=== PATIENT | male | born 1960 | race Two or more races ===

== ENCOUNTER → 2016-07-17 | Outpatient (CLI) | payer OTHER ==
[2016-07-17 09:38] LABS: BASO % 0.5 % (0.0-1.0); EOS # 0.1 K/mm3 (0.0-0.50); EOS % 2.1 % (0.0-3.0); LARGE UNSTAINED CELL # 0.2 K/mm3 (0.0-0.4); LARGE UNSTAINED CELL % 2.8 % (0.0-4.0); LYMPH # 1.9 K/mm3 (1.5-4.5); LYMPH % 32.4 % (24.0-44.0); MEAN CORPUSCULAR HEMOGLOBIN 30.4 pg (27.0-33.0); MEAN CORPUSCULAR HGB CONC 33.6 g/dl (32.0-36.5); MEAN CORPUSCULAR VOLUME 90.6 fl (80.0-96.0); MONO # 0.3 K/mm3 (0.0-0.8); NEUTROPHILS # 3.1 K/mm3 (1.8-7.7); NEUTROPHILS % 57.1 % (36.0-66.0); PLATELET COUNT, AUTOMATED 210 k/mm3 (150-450); RED CELL DISTRIBUTION WIDTH 12.9 % (11.5-14.5); WHITE BLOOD COUNT 5.5 K/mm3 (4.0-10.0)
[2016-07-17 09:55] LABS: ALBUMIN 3.6 GM/DL (3.2-5.2); ALBUMIN/GLOBULIN RATIO 1.09 (1.00-1.93); ALKALINE PHOSPHATASE 67 U/L (45-117); ALT/SGPT 22 U/L (12-78); ANION GAP 6 MEQ/L (8-16); AST/SGOT 14 U/L (15-37); BILIRUBIN,TOTAL 0.4 MG/DL (0.2-1.0); BLOOD UREA NITROGEN 12 MG/DL (7-18); CALCIUM LEVEL 8.5 MG/DL (8.5-10.1); CARBON DIOXIDE LEVEL 29 MEQ/L (21-32); CHLORIDE LEVEL 105 MEQ/L (98-107); CHOLESTEROL LEVEL 195 MG/DL (<200); CREATININE FOR GFR 0.87 MG/DL (0.70-1.30); GLOMERULAR FILTRATION RATE > 60.0 (>56); GLUCOSE, FASTING 99 MG/DL (70-105); POTASSIUM SERUM 4.3 MEQ/L (3.5-5.1); SODIUM LEVEL 140 MEQ/L (136-145); TOTAL PROTEIN 6.9 GM/DL (6.4-8.2); TRIGLYCERIDES LEVEL 118 MG/DL (<150)
== END ==
LOC: M LAB 08:11
PROVIDERS: ATTEND Nurse Practitioner Family
DX: Z00.00 Encounter for general adult medical examination without abnormal findings (principal); I15.9 Secondary hypertension, unspecified; Z13.220 Encounter for screening for lipoid disorders; Z12.5 Encounter for screening for malignant neoplasm of prostate; E55.9 Vitamin D deficiency, unspecified

== ENCOUNTER → 2016-08-15 | Outpatient (CLI) | payer OTHER | LOC: M SMT 14:05 | PROVIDERS: ATTEND Urology | DX: R97.20 Elevated prostate specific antigen [PSA] (principal); Z85.49 Personal history of malignant neoplasm of other male genital organs ==

== ENCOUNTER 2016-09-04 11:56 | Emergency (ER) | payer OTHER ==
[~2016-09-04] VITALS: Ht 177.8 cm; Wt 81.6 kg
[2016-09-04] MEDS ORDERED: VITA50003 PO (12:13)
[2016-09-04] MEDS ORDERED: ATOR40TA (12:13)
[2016-09-04] MEDS ORDERED: guaiFENesin SYRUP 200 MG/10 ML UDC PO ONE (13:15)
--- NOTE | 2016-09-04 13:42 | REP ---
Clinical: Chest and left shoulder pain . Comparison: 03/24/2014 . Technique: PA and lateral. Findings: The mediastinum and cardiac silhouette are normal. The lung yusuf are clear and without acute consolidation, effusion, or pneumothorax. The skeletal structures are intact and normal. Impression: 1. No acute cardiopulmonary process. Signed by Catracho Faust MD 09/04/2016 01:33 P
--- NOTE | 2016-09-04 13:43 | REP ---
Clinical: Left shoulder pain with suggestions for adhesive capsulitis. Technique: Internal rotation, external rotation, and Y view left shoulder. Findings: No acute fracture or dislocation. The acromioclavicular and glenohumeral joints are intact. No periarticular calcifications or degenerative changes are appreciated. Sub acromial space is normal. Surrounding soft tissues are unremarkable. Impression: Normal left shoulder radiographs. Signed by Catracho Faust MD 09/04/2016 01:34 P
[2016-09-04 14:25] VITALS: BP 152/94
[2016-09-04] MEDS ORDERED: TESS100C PO (14:30)
--- NOTE | 2016-09-04 15:04 | ECGEPIP ---
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
== END 2016-09-04 14:44 | disposition home or self-care (01) ==
LOC: M ED 12:28
DX: J06.9 Acute upper respiratory infection, unspecified (principal); S46.912A Strain of unspecified muscle, fascia and tendon at shoulder and upper arm level, left arm, initial encounter; X58.XXXA Exposure to other specified factors, initial encounter; Y92.9 Unspecified place or not applicable; Y93.9 Activity, unspecified; Y99.9 Unspecified external cause status; Z79.899 Other long term (current) drug therapy

== ENCOUNTER → 2016-09-13 | Outpatient (CLI) | payer OTHER ==
[~2016-09-13] MED LIST: ATOR40TA; TESS100C PO; VITA50003 PO
--- NOTE | 2016-09-13 17:22 | REP ---
MULTIPARAMETRIC PROSTATE MRI STUDY WITH PRE- AND [id number] IMAGING, DIFFUSION WEIGHT IMAGING: TECHNIQUE: Using a phased array surface coil, small field of view imaging was acquired using T2-weighted scans in the axial, coronal, and sagittal imaging planes. Small field of view diffusion-weighted sequences are acquired. Small field of view axial T1-weighted scans are acquired dynamically after the intravenous administration of 16 mL of ProHance. Using a large field of view, the entire pelvis to the level of the aortic bifurcation was imaged using pre-contrast axial T1 and post-contrast axial T1 fat-saturation images. HISTORY: Elevated prostate specific antigen. FINDINGS: Visualized osseous structures demonstrate no bone lesion. No pelvic or inguinal adenopathy is seen. Posterior to the right hip joint is an oval lobulated cystic structure which measures 3.2 x 6.6 x 4.0 cm. This does not appear to enhance. This is nonspecific. Seminal vesicles appear essentially unremarkable. The prostate measures 4.0 x 3.0 x 2.6 cm. Total volume is 16.7 mL. Three areas of abnormal signal intensity and contrast enhancement are identified in the prostate glands as regions of interest. First in the midline anterior stroma, extending from the base to the apex, both on the right and the left, an also involving the mid and basilar anterior transitional zone is an oval area of low signal on T2 and diffusion weighted images. There is no extracapsular extension. Enhancement characteristics are mainly type 1. The area measures 2.8 x 1.4 x 2.6 cm for a total volume of 4.1 mL. Overall level of suspicion is 3 out of 5 with clinically significant cancer equivocal. Secondly in the left posterior peripheral zone extending from the base to the apex is a somewhat geographic area of low signal on T2 and diffusion weighted imaging. There are primarily type 1 enhancement characteristics in this region. The area measures 1.7 x 0.6 x 2.3 cm for a total volume of 1.8 mL. Overall level of suspicion is 2 out of 5 with clinically significant cancer unlikely to be present. Finally in the right apical posterior peripheral zone is a somewhat geographic area of low signal on T2 and diffusion weighted imaging. Enhancement characteristics are mainly type 1. Overall level of suspicion is 2 out of 5 with clinically significant cancer unlikely to be present. IMPRESSION: Three focal abnormalities in the prostate gland are identified as regions of interest in the [employer] software for MR ultrasound fusion utilization. Signed by Khari Stokes MD 09/14/2016 07:08 P
== END ==
LOC: M RAD 13:32
PROVIDERS: ATTEND Urology
DX: R93.8 Abnormal findings on diagnostic imaging of other specified body structures (principal)

== ENCOUNTER → 2016-09-29 | Outpatient (CLI) | payer OTHER ==
[~2016-09-29] MED LIST changes: +ASPI1TAB PO; -ATOR40TA; +ATOR40TA PO; +CLOP75TA2 PO; +DRIS50002 PO; +METO12TA PO
--- NOTE | 2016-09-29 12:14 | REP ---
TRANSRECTAL PROSTATE ULTRASOUND WITH ULTRASOUND GUIDANCE FOR PROSTATE BIOPSY: Transrectal prostate ultrasound performed. The prostate measures 3.4 x 2.2 x 4.0 cm for a total volume of 15.9 mL. Transrectal prostate ultrasound guidance was provided for a prostate biopsy utilizing MR ultrasound fusion software. Signed by Khari Stokes MD 09/29/2016 05:21 P
== END ==
LOC: M SMT PRO 09:01
PROVIDERS: ATTEND Urology
DX: C61 Malignant neoplasm of prostate (principal)
CPT/HCPCS: 76872; 76942; G0416

== ENCOUNTER 2016-10-06 17:57 | Emergency (ER) | payer OTHER ==
[~2016-10-06] VITALS: Ht 177.8 cm; Wt 83.0 kg
[~2016-10-06 17:57] MED LIST changes: -ASPI1TAB PO; -ATOR40TA PO; +ATOR40TA75 PO; -CLOP75TA2 PO; -DRIS50002 PO; -METO12TA PO; +VITA1CAP40 PO; -VITA50003 PO
[2016-10-06 19:10] LABS: BASO % 0.4 % (0.0-1.0); EOS # 0.2 K/mm3 (0.0-0.50); LARGE UNSTAINED CELL # 0.1 K/mm3 (0.0-0.4); LARGE UNSTAINED CELL % 1.9 % (0.0-4.0); LYMPH # 2.7 K/mm3 (1.5-4.5); LYMPH % 36.9 % (24.0-44.0); MEAN CORPUSCULAR HEMOGLOBIN 30.8 pg (27.0-33.0); MEAN CORPUSCULAR HGB CONC 34.1 g/dl (32.0-36.5); MEAN CORPUSCULAR VOLUME 90.2 fl (80.0-96.0); MONO # 0.3 K/mm3 (0.0-0.8); NEUTROPHILS # 3.6 K/mm3 (1.8-7.7); NEUTROPHILS % 52.8 % (36.0-66.0); PLATELET COUNT, AUTOMATED 203 k/mm3 (150-450); RED CELL DISTRIBUTION WIDTH 13.2 % (11.5-14.5); WHITE BLOOD COUNT 6.9 K/mm3 (4.0-10.0)
--- NOTE | 2016-10-06 19:10 | REP ---
AP PORTABLE CHEST: 10/06/2016. Comparison: 09/04/2016, 03/24/2014, 08/08/2013 chest x-rays. Clinical history: Chest pain. Findings: Lungs are well inflated without infiltrative effusion, atelectasis or masses. No pneumothorax or pneumomediastinum. Heart is not enlarged. The aorta is normal. Airway is intact. There is no mediastinal or hilar adenopathy. Bony thorax shows no focal lesion. Impression: 1. No acute cardiopulmonary change. Signed by Bobby Diallo MD 10/06/2016 08:51 P
[2016-10-06 19:12] LABS: INR 0.99
[2016-10-06 19:27] LABS: ALBUMIN 3.9 GM/DL (3.2-5.2); ALBUMIN/GLOBULIN RATIO 1.05 (1.00-1.93); ALKALINE PHOSPHATASE 79 U/L (45-117); ALT/SGPT 27 U/L (12-78); ANION GAP 5 MEQ/L (8-16); AST/SGOT 16 U/L (15-37); BILIRUBIN,DIRECT 0.1 MG/DL (0.0-0.2); BILIRUBIN,TOTAL 0.5 MG/DL (0.2-1.0); BLOOD UREA NITROGEN 13 MG/DL (7-18); CALCIUM LEVEL 8.9 MG/DL (8.5-10.1); CARBON DIOXIDE LEVEL 28 MEQ/L (21-32); CHLORIDE LEVEL 104 MEQ/L (98-107); CREATININE FOR GFR 0.96 MG/DL (0.70-1.30); FREE T4 1.21 NG/DL (0.76-1.46); GLOMERULAR FILTRATION RATE > 60.0 (>56); GLUCOSE, FASTING 134 MG/DL (70-105); POTASSIUM SERUM 4.1 MEQ/L (3.5-5.1); SODIUM LEVEL 137 MEQ/L (136-145); TOTAL PROTEIN 7.6 GM/DL (6.4-8.2)
[2016-10-06] MEDS ORDERED: NITROGLYCERIN 2% OINT 1 GM *U/D* PKT TOP ONE (20:15)
[2016-10-06] MEDS ORDERED: MORPHINE 4 MG/ML 1ML SYRINGE IV PRN (21:45)
[2016-10-06] MEDS ORDERED: ONDANSETRON 4MG/2ML VIAL (J2405) IV ONE (21:45)
[2016-10-06] MEDS ORDERED: HEPARIN DRIP 25,000 UNITS in APPROPRIATE DILUENT 1 EA IV SCH (21:55)
[2016-10-06] MEDS ORDERED: HEPARIN SOD (PORCINE) 5000 UNITS/ML VIAL IV ONE (22:00)
[2016-10-06] MEDS ORDERED: METOPROLOL TART 25 MG TABLET PO ONE (22:00)
[2016-10-06] MEDS ORDERED: CLOPIDOGREL 300 MG TAB (PLAVIX) PO STA (22:01)
[2016-10-06] MEDS: NITROGLYCERIN 0.4 MG SUBL TABLET SL PRN ×3 (22:23→22:40)
[2016-10-06] MEDS: METOPROLOL 5 MG/5 ML VIAL IV SCH ×2 (22:24→22:35)
[2016-10-06 22:29] LABS: INR 1.03
[2016-10-06 22:40] VITALS: BP 136/92
[2016-10-06 23:26] VITALS: BP 123/84
--- NOTE | 2016-10-07 07:39 | ECGEPIP ---
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
--- NOTE | 2016-10-07 07:41 | ECGEPIP ---
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
== END 2016-10-06 23:28 | disposition short-term general hospital (02) ==
LOC: M ED 20:03
DX: I20.0 Unstable angina (principal); C61 Malignant neoplasm of prostate; E78.5 Hyperlipidemia, unspecified; Z82.49 Family history of ischemic heart disease and other diseases of the circulatory system; R94.31 Abnormal electrocardiogram [ECG] [EKG]; Z79.899 Other long term (current) drug therapy

== ENCOUNTER 2016-10-10 21:18 | Emergency (ER) | payer OTHER ==
[~2016-10-10] VITALS: Ht 177.8 cm; Wt 81.0 kg
[2016-10-10] MEDS ORDERED: ASPI1TAB PO (21:30)
[2016-10-10] MEDS ORDERED: METO1TAB87 PO (21:30)
[2016-10-10] MEDS ORDERED: CLOP75TA2 PO (21:30)
[2016-10-10 22:15] LABS: INR 1.13
[2016-10-10 22:35] VITALS: BP 128/91
[2016-10-11] MEDS ORDERED: DRIS50002 PO (11:36)
== END 2016-10-10 22:35 | disposition home or self-care (01) ==
LOC: EDBD 21:18 → M ED 21:18
DX: L76.22 Postprocedural hemorrhage of skin and subcutaneous tissue following other procedure (principal); I25.10 Atherosclerotic heart disease of native coronary artery without angina pectoris; I10 Essential (primary) hypertension; E78.5 Hyperlipidemia, unspecified; Z95.5 Presence of coronary angioplasty implant and graft; Z79.82 Long term (current) use of aspirin; Z79.899 Other long term (current) drug therapy

== ENCOUNTER 2016-10-11 08:31 | Observation (INO) | payer OTHER ==
[~2016-10-11] VITALS: Ht 177.8 cm; Wt 79.0 kg
[~2016-10-11 08:31] MED LIST changes: +ASPI1TAB PO; +CLOP75TA2 PO; +METO1TAB87 PO
[2016-10-11] MEDS ORDERED: ATORVASTATIN 20 MG TAB PO SCH ×2 (09:00→11:46)
[2016-10-11] MEDS ORDERED: PIPERACILLIN/TAZOBACTAM SOD 3.375 GM in D5W MINI-BAG PLUS 50 ML IV ONE (09:15)
--- NOTE | 2016-10-11 10:07 | REP ---
Soft-tissue ultrasound right groin: History: Question hematoma status post catheterization 2 days prior. Bleeding from incision site. Findings: There is a normal-appearing right inguinal lymph node 2.4 x 0.7 cm in diameter. Color flow and two-dimensional ultrasound demonstrate a hypoechoic area along the anterior wall of the common femoral artery on the right. This fills in with bidirectional color flow. It is 4 mm in diameter and is compatible with a small pseudoaneurysm. No significant overlying hematoma is seen. 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 No significant hematoma seen. A normal appearing right inguinal lymph node is noted. Signed by Madhav Lau MD 10/11/2016 03:22 P
[2016-10-11 10:12] LABS: INR 1.02
[2016-10-11 10:16] LABS: MEAN CORPUSCULAR HEMOGLOBIN 31.5 pg (27.0-33.0); MEAN CORPUSCULAR HGB CONC 34.7 g/dl (32.0-36.5); MEAN CORPUSCULAR VOLUME 90.7 fl (80.0-96.0); RED CELL DISTRIBUTION WIDTH 12.9 % (11.5-14.5)
[2016-10-11 10:50] LABS: ANION GAP 5 MEQ/L (8-16); BLOOD UREA NITROGEN 15 MG/DL (7-18); CARBON DIOXIDE LEVEL 28 MEQ/L (21-32); CHLORIDE LEVEL 104 MEQ/L (98-107); CREATININE FOR GFR 0.78 MG/DL (0.70-1.30); GLOMERULAR FILTRATION RATE > 60.0 (>56); GLUCOSE, FASTING 99 MG/DL (70-105); POTASSIUM SERUM 4.4 MEQ/L (3.5-5.1); SODIUM LEVEL 137 MEQ/L (136-145)
[2016-10-11] MEDS: CLOPIDOGREL 75 MG TAB PO SCH (11:08)
[2016-10-11] MEDS: ASPIRIN 81 MG ENTERIC TAB PO SCH (11:08)
[2016-10-11] MEDS: METOPROLOL TART 25 MG TABLET PO SCH ×2 (11:09→21:45)
[2016-10-11] MEDS ORDERED: DRIS50002 PO (11:36)
[2016-10-11 14:00] VITALS: BP 127/81
[2016-10-11 22:00] VITALS: BP 114/75
[2016-10-12 06:00] VITALS: BP 115/81
[2016-10-12 08:27] VITALS: BP 115/81
[2016-10-12] MEDS: METOPROLOL TART 25 MG TABLET PO SCH (08:27)
[2016-10-12] MEDS: CLOPIDOGREL 75 MG TAB PO SCH (08:27)
[2016-10-12] MEDS: ASPIRIN 81 MG ENTERIC TAB PO SCH (08:27)
[2016-10-12 10:00] VITALS: BP 117/79
--- NOTE | 2016-10-12 12:32 | IPN ---
DATE: 10/12/2016 Patient denies any complaints. No chest pain. No shortness of breath. No transient ischemic attacks (TIA)s. No amaurosis fugax. No dysarthria. No paralysis of paresis of an extremity. No nausea, vomiting, fevers or chills. Patient was ambulating last evening and this morning and has had no further bleeding from his right femoral cannulation site status post coronary artery angiography with stent placement. OBJECTIVE: Afebrile with normal vital signs, oxygen 98% on room air. Neurologic: Awake, alert, oriented times three with no focal deficits. Neck is supple with no carotid bruits auscultated. Heart: Regular rate and rhythm with no murmurs, rubs or gallops. Lungs: Clear to auscultation bilaterally with no rhonchi, wheezes or crackles. Abdomen: Soft, nontender, nondistended with no palpable pulsatile masses. Extremities: Well perfused with 2+ brachial, radial and ulnar pulses in the upper extremities. Lower extremities show 2+ femoral, popliteal, dorsalis pedis and posterior tibial pulses. The right femoral cannulation site is clean with a dressing in place with no saturation or bleeding noted on the dressing. ASSESSMENT: Patient is a 56-year-old male who underwent a cardiac angiogram with angioplasty and stent due to unstable angina with placement of three stents. The location of the stents is unknown at this time as I do not have a report of the procedure. The patient developed bleeding from his right groin postprocedure and was seen in the emergency room twice and arterial duplex of the right common femoral artery was performed showing an approximately 4 mm pseudoaneurysm. The patient was admitted to the hospital for observation and bed rest for 8 hours after which he was ambulating without difficulty. The patient will undergo an arterial duplex of his right common femoral artery this morning to see if there is any increased size of the pseudoaneurysm or whether the pseudoaneurysm has thrombosed. If there has been no worsening of the pseudoaneurysm and/or improvement, the patient will be discharged home today.
--- NOTE | 2016-10-12 23:40 | IPN ---
DATE OF EVALUATION: 10/12/2016 SUBJECTIVE: Patient has had no right inguinal bleeding since his initial evaluation in the emergency room yesterday. STUDIES: Patient underwent a right femoral arterial duplex, which showed no evidence of pseudoaneurysm. The previously interpreted ultrasound stating there was a 4 mm pseudoaneurysm was reviewed in contrast with the new study performed, and the previous study actually demonstrated what appears to be a collateral branch originating off the common femoral artery and coursing towards a lymph node with no evidence of pseudoaneurysm. The repeat scan today also confirms no pseudoaneurysm present, and no intervention is required. Patient will be discharged to home and will followup with myself on an as-needed basis. Patient will continue all medications he was on prior to admission.
--- NOTE | 2016-10-19 15:12 | REP ---
SOFT-TISSUE ULTRASOUND RIGHT GROIN WITH DOPPLER: HISTORY: Sonography from October 11, 2016 was read as showing a small right common femoral artery pseudoaneurysm. SONOGRAPHIC FINDINGS: Repeat sonography is performed. The hypoechoic area extending from the anterior wall of the common femoral artery on the right is again seen, however, on today's study this appears to be a normal branch vessel arising from the common femoral artery. A there is no evidence of pseudoaneurysm today. No to-and-fro motion is seen on color Doppler. As on yesterday's study, there is no evidence of hematoma. IMPRESSION: Repeat two-dimensional and Doppler scanning shows no evidence of pseudoaneurysm. There is a normal-appearing branch vessel arising from this segment the common femoral artery. No hematoma seen. Signed by Mahdav Lau MD 10/12/2016 03:31 P
== END 2016-10-12 14:15 | disposition home or self-care (01) ==
LOC: M ED 08:31 → M ED INP 10:16 → M MS5PR 13:31
PROVIDERS: ADMIT Surgery Vascular Surgery; ATTEND Surgery Vascular Surgery
DX: I72.4 Aneurysm of artery of lower extremity (principal); I10 Essential (primary) hypertension; I25.10 Atherosclerotic heart disease of native coronary artery without angina pectoris; Z98.61 Coronary angioplasty status; Z85.46 Personal history of malignant neoplasm of prostate; Z79.02 Long term (current) use of antithrombotics/antiplatelets

== ENCOUNTER → 2016-10-19 | Outpatient (REF) | payer OTHER ==
[~2016-10-19] MED LIST changes: +DRIS50002 PO
== END ==
LOC: M LABSMT 13:41
PROVIDERS: ATTEND Nurse Practitioner Family
DX: C61 Malignant neoplasm of prostate (principal); E78.5 Hyperlipidemia, unspecified

== ENCOUNTER 2016-11-07 13:33 | Emergency (ER) | payer OTHER ==
[~2016-11-07] VITALS: Ht 160 cm; Wt 81.9 kg
[2016-11-07 15:15] LABS: BASO % 0.3 % (0.0-1.0); EOS # 0.2 K/mm3 (0.0-0.50); EOS % 3.7 % (0.0-3.0); LARGE UNSTAINED CELL # 0.1 K/mm3 (0.0-0.4); LARGE UNSTAINED CELL % 2.4 % (0.0-4.0); LYMPH # 1.5 K/mm3 (1.5-4.5); LYMPH % 29.6 % (24.0-44.0); MEAN CORPUSCULAR HEMOGLOBIN 30.7 pg (27.0-33.0); MEAN CORPUSCULAR HGB CONC 33.8 g/dl (32.0-36.5); MEAN CORPUSCULAR VOLUME 90.8 fl (80.0-96.0); MONO # 0.2 K/mm3 (0.0-0.8); MONO % 5.4 % (0.0-5.0); NEUTROPHILS # 2.6 K/mm3 (1.8-7.7); NEUTROPHILS % 58.6 % (36.0-66.0); PLATELET COUNT, AUTOMATED 169 k/mm3 (150-450); RED CELL DISTRIBUTION WIDTH 13.4 % (11.5-14.5); WHITE BLOOD COUNT 4.5 K/mm3 (4.0-10.0)
[2016-11-07 15:40] LABS: ALBUMIN 3.9 GM/DL (3.2-5.2); ALBUMIN/GLOBULIN RATIO 1.05 (1.00-1.93); ALKALINE PHOSPHATASE 75 U/L (45-117); ALT/SGPT 33 U/L (12-78); ANION GAP 4 MEQ/L (8-16); AST/SGOT 25 U/L (15-37); BILIRUBIN,DIRECT 0.1 MG/DL (0.0-0.2); BILIRUBIN,TOTAL 0.4 MG/DL (0.2-1.0); BLOOD UREA NITROGEN 10 MG/DL (7-18); CALCIUM LEVEL 8.7 MG/DL (8.5-10.1); CARBON DIOXIDE LEVEL 27 MEQ/L (21-32); CHLORIDE LEVEL 103 MEQ/L (98-107); CREATININE FOR GFR 0.76 MG/DL (0.70-1.30); FREE T4 1.12 NG/DL (0.76-1.46); GLOMERULAR FILTRATION RATE > 60.0 (>56); GLUCOSE, FASTING 79 MG/DL (70-105); POTASSIUM SERUM 4.2 MEQ/L (3.5-5.1); SODIUM LEVEL 134 MEQ/L (136-145); TOTAL PROTEIN 7.6 GM/DL (6.4-8.2)
[2016-11-07] MEDS ORDERED: ISOVUE-370 76% 100ML VIAL (Q9967) As Ordered ONE (16:08)
--- NOTE | 2016-11-07 16:36 | REP ---
PORTABLE SINGLE VIEW CHEST: COMPARISON: 10/06/2016. There is no evidence of acute infiltrate. No pleural effusion is seen. The heart is normal in size. The mediastinal silhouette is unremarkable. The visualized osseous structures are intact. IMPRESSION: No acute pulmonary disease. Signed by Khari Stokes MD 11/09/2016 05:46 P
--- NOTE | 2016-11-07 16:36 | REP ---
LEFT SHOULDER, THREE VIEWS: There is no evidence of an acute fracture, dislocation or intrinsic bone disease. IMPRESSION: No fracture or dislocation. Signed by Khari Stokes MD 11/09/2016 05:46 P
--- NOTE | 2016-11-07 18:16 | REP ---
CT ANGIOGRAM OF THE CHEST: 11/07/2016. Comparison: CT chest 12/11/2009, portable chest 11/07/2016. Clinical history: Chest pain. Evaluate for pulmonary embolism. Technique: The patient received 75 mL Isovue 370 scanning through the chest with our pulmonary arteriogram protocol with coronal and sagittal thick slab MIP reformats. Findings: Some minor dependent atelectatic changes are noted in the posterior and lower lung zones of the into the mid chest. There is no pleural effusion, calcified pleural plaque, pleural based mass or acute infiltrate. No pulmonary nodule or parenchymal infiltrate. The heart is not enlarged and no pericardial thickening or effusion. I see no hiatal hernia. The aorta is without aneurysm or dissection. It has a few calcifications at the arch. The main, right and left pulmonary arteries within the mediastinum are without filling defects. Lobar arteries, segmental and visible subsegmental arteries are also without filling defect or vessel cutoff to suggest pulmonary thromboembolism. There is no pathologic sized mediastinal or hilar adenopathy and no axillary or supraclavicular mass. Bone windows show the sternum, manubrium, medial clavicles, left AC joint, glenohumeral joints, humeral heads and scapula grossly intact. Ribs intact. Spine shows some marginal osteophyte formation without compression deformity of focal lesion. That portion of liver and spleen in the upper abdomen are unremarkable. Gallbladder shows no calcified stone. Visible portion of pancreas is unremarkable and no focal abnormalities in those segments of colon included. Adrenal glands intact. Impression: 1. No CT evidence of pulmonary thromboembolism. 2. No acute infiltrate, effusion, pulmonary nodule or mass. There is minor dependent atelectatic change. 3. Aorta without aneurysm or dissection. 4. Upper abdomen and the bony chest structures unremarkable. Signed by Bobby Diallo MD 11/08/2016 08:12 P
[2016-11-07 20:22] VITALS: BP 128/73
--- NOTE | 2016-11-09 11:13 | ECGEPIP ---
Stationary ECG Study 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
--- NOTE | 2016-11-09 11:15 | ECGEPIP ---
Stationary ECG Study 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
== END 2016-11-07 20:46 | disposition home or self-care (01) ==
LOC: M ED 13:33
DX: R07.9 Chest pain, unspecified (principal); I25.10 Atherosclerotic heart disease of native coronary artery without angina pectoris; I10 Essential (primary) hypertension; E78.5 Hyperlipidemia, unspecified; N40.0 Benign prostatic hyperplasia without lower urinary tract symptoms; G43.909 Migraine, unspecified, not intractable, without status migrainosus; Z85.46 Personal history of malignant neoplasm of prostate; Z95.5 Presence of coronary angioplasty implant and graft; Z79.82 Long term (current) use of aspirin; Z79.899 Other long term (current) drug therapy
CPT/HCPCS: 71010; 71275; 73030; 80048; 80076; 82550; 82553; 84439; 84443; 85025; 93000; 93041; 94760; 99285; Q9967

== ENCOUNTER 2016-11-09 07:54 | Outpatient (RCR) | payer OTHER | END 2016-11-13 | LOC: M CR 07:54 | PROVIDERS: ATTEND Internal Medicine Cardiovascular Disease | DX: Z51.89 Encounter for other specified aftercare (principal); Z98.61 Coronary angioplasty status; I25.10 Atherosclerotic heart disease of native coronary artery without angina pectoris ==

== ENCOUNTER → 2016-11-23 | Outpatient (CLI) | payer OTHER ==
[2016-11-24 14:14] LABS: PSA % FREE 4.6 % (.); PSA FREE 0.21 ng/mL; PSA TOTAL 4.6 ng/mL (0.0-4.0)
== END ==
LOC: M LAB 07:38
PROVIDERS: ATTEND Urology
DX: C61 Malignant neoplasm of prostate (principal)

== ENCOUNTER → 2016-11-23 | Outpatient (CLI) | payer OTHER ==
[2016-11-23 08:29] LABS: ALKALINE PHOSPHATASE 68 U/L (45-117); ALT/SGPT 36 U/L (12-78); ANION GAP 8 MEQ/L (8-16); AST/SGOT 23 U/L (15-37); BILIRUBIN,TOTAL 0.5 MG/DL (0.2-1.0); BLOOD UREA NITROGEN 15 MG/DL (7-18); CARBON DIOXIDE LEVEL 27 MEQ/L (21-32); CHLORIDE LEVEL 107 MEQ/L (98-107); CHOLESTEROL LEVEL 114 MG/DL (<200); CREATININE FOR GFR 0.89 MG/DL (0.70-1.30); GLOMERULAR FILTRATION RATE > 60.0 (>56); GLUCOSE, FASTING 105 MG/DL (70-105); POTASSIUM SERUM 4.5 MEQ/L (3.5-5.1); SODIUM LEVEL 142 MEQ/L (136-145); TOTAL PROTEIN 7.3 GM/DL (6.4-8.2); TRIGLYCERIDES LEVEL 46 MG/DL (<150)
[2016-11-23 08:30] LABS: ALBUMIN 3.9 GM/DL (3.2-5.2); ALBUMIN/GLOBULIN RATIO 1.15 (1.00-1.93)
== END ==
LOC: M LAB 07:41
PROVIDERS: ATTEND Internal Medicine Cardiovascular Disease
DX: I25.10 Atherosclerotic heart disease of native coronary artery without angina pectoris (principal); I25.2 Old myocardial infarction; E78.5 Hyperlipidemia, unspecified

== ENCOUNTER 2016-12-04 14:07 | Outpatient (RCR) | payer OTHER | END 2016-12-14 | LOC: M CR 14:07 | PROVIDERS: ATTEND Internal Medicine Cardiovascular Disease | DX: Z51.89 Encounter for other specified aftercare (principal); Z98.61 Coronary angioplasty status; I25.10 Atherosclerotic heart disease of native coronary artery without angina pectoris ==

== ENCOUNTER 2016-12-15 08:24 | Outpatient (RCR) | payer OTHER | END 2017-01-13 | LOC: M CR 08:24 | PROVIDERS: ATTEND Internal Medicine Cardiovascular Disease | DX: Z51.89 Encounter for other specified aftercare (principal); I25.10 Atherosclerotic heart disease of native coronary artery without angina pectoris; Z98.61 Coronary angioplasty status ==

== ENCOUNTER → 2016-12-28 | Outpatient (REF) | payer OTHER | LOC: M SMT 17:12 | PROVIDERS: ATTEND Urology | DX: Z85.46 Personal history of malignant neoplasm of prostate (principal) ==

== ENCOUNTER → 2017-01-14 | Outpatient (CLI) | payer OTHER ==
[2017-01-14 10:01] LABS: MEAN CORPUSCULAR HEMOGLOBIN 29.6 pg (27.0-33.0); MEAN CORPUSCULAR HGB CONC 32.5 g/dl (32.0-36.5); MEAN CORPUSCULAR VOLUME 91.1 fl (80.0-96.0); RED CELL DISTRIBUTION WIDTH 13.9 % (11.5-14.5); WHITE BLOOD COUNT 4.9 10^3/uL (4.0-10.0)
[2017-01-14 10:16] LABS: ANION GAP 7 MEQ/L (8-16); BLOOD UREA NITROGEN 8 MG/DL (7-18); CALCIUM LEVEL 8.9 MG/DL (8.5-10.1); CARBON DIOXIDE LEVEL 27 MEQ/L (21-32); CHLORIDE LEVEL 105 MEQ/L (98-107); CREATININE FOR GFR 0.75 MG/DL (0.70-1.30); GLOMERULAR FILTRATION RATE > 60.0 (>56); GLUCOSE, FASTING 95 MG/DL (70-105); POTASSIUM SERUM 4.1 MEQ/L (3.5-5.1); SODIUM LEVEL 139 MEQ/L (136-145)
== END ==
LOC: M LAB 09:17
PROVIDERS: ATTEND Urology
DX: Z85.46 Personal history of malignant neoplasm of prostate (principal)

== ENCOUNTER 2017-01-15 08:07 | Outpatient (RCR) | payer OTHER | END 2017-02-13 | LOC: M CR 08:07 | PROVIDERS: ATTEND Internal Medicine Cardiovascular Disease | DX: Z51.89 Encounter for other specified aftercare (principal); Z98.61 Coronary angioplasty status; I25.10 Atherosclerotic heart disease of native coronary artery without angina pectoris ==

== ENCOUNTER 2017-03-14 10:42 | Outpatient (RCR) | payer OTHER | END 2017-03-15 | LOC: M CR 10:42 | PROVIDERS: ATTEND Internal Medicine Cardiovascular Disease | DX: Z98.61 Coronary angioplasty status (principal); I25.10 Atherosclerotic heart disease of native coronary artery without angina pectoris ==

== ENCOUNTER → 2017-03-14 | Outpatient (REF) | payer OTHER ==
[2017-03-14 10:23] LABS: BASO % 0.4 % (0.0-1.0); EOS # 0.2 10^3/uL (0.0-0.50); EOS % 4.1 % (0.0-3.0); IMMATURE GRANULOCYTE % 0.2 % (0-0); LYMPH # 1.8 10^3/uL (1.5-4.5); LYMPH % 35.7 % (24.0-44.0); MEAN CORPUSCULAR HEMOGLOBIN 29.9 pg (27.0-33.0); MEAN CORPUSCULAR HGB CONC 33.2 g/dl (32.0-36.5); MEAN CORPUSCULAR VOLUME 90.2 fl (80.0-96.0); MONO # 0.4 10^3/uL (0.0-0.8); MONO % 7.3 % (0.0-5.0); NEUTROPHILS # 2.6 10^3/uL (1.8-7.7); NEUTROPHILS % 52.3 % (36.0-66.0); PLATELET COUNT, AUTOMATED 227 10^3/uL (150-450); RED CELL DISTRIBUTION WIDTH 13.6 % (11.5-14.5); WHITE BLOOD COUNT 4.9 10^3/uL (4.0-10.0)
[2017-03-14 10:51] LABS: ALBUMIN 3.8 GM/DL (3.2-5.2); ALBUMIN/GLOBULIN RATIO 1.06 (1.00-1.93); ALKALINE PHOSPHATASE 64 U/L (45-117); ALT/SGPT 24 U/L (12-78); ANION GAP 6 MEQ/L (8-16); AST/SGOT 12 U/L (7-37); BILIRUBIN,TOTAL 0.4 MG/DL (0.2-1.0); BLOOD UREA NITROGEN 19 MG/DL (7-18); CARBON DIOXIDE LEVEL 29 MEQ/L (21-32); CHLORIDE LEVEL 106 MEQ/L (98-107); CREATININE FOR GFR 0.92 MG/DL (0.70-1.30); GLOMERULAR FILTRATION RATE > 60.0 (>56); GLUCOSE, FASTING 98 MG/DL (70-105); POTASSIUM SERUM 4.4 MEQ/L (3.5-5.1); SODIUM LEVEL 141 MEQ/L (136-145); TOTAL PROTEIN 7.4 GM/DL (6.4-8.2)
== END ==
LOC: M SFHCPLAZ 07:51
PROVIDERS: ATTEND Nurse Practitioner Family
DX: R10.31 Right lower quadrant pain (principal); R10.32 Left lower quadrant pain

== ENCOUNTER → 2017-03-14 | Outpatient (REF) | payer OTHER | LOC: M SFHCPLAZ 11:33 | PROVIDERS: ATTEND Nurse Practitioner Family | DX: R10.31 Right lower quadrant pain (principal); K21.9 Gastro-esophageal reflux disease without esophagitis ==

== ENCOUNTER 2017-03-16 09:17 | Outpatient (RCR) | payer OTHER | END 2017-04-15 | LOC: M CR 09:17 | DX: Z51.89 Encounter for other specified aftercare (principal); Z98.61 Coronary angioplasty status; I25.10 Atherosclerotic heart disease of native coronary artery without angina pectoris ==

== ENCOUNTER → 2017-03-21 | Outpatient (CLI) | payer OTHER ==
[~2017-03-21] MED LIST changes: +GASTROGRAFIN SOLUTION 30ML (Q9963) As Ordered ONE; +ISOVUE-370 76% 100ML VIAL (Q9967) As Ordered ONE
--- NOTE | 2017-03-22 07:46 | REP ---
CONTRAST ENHANCED CT OF THE ABDOMEN AND PELVIS: CLINICAL: Lower abdominal and pelvic pain. History of penile carcinoma. TECHNIQUE: Axial contrast enhanced images from the lung bases to the pubic symphysis using oral (per protocol) and 100 mL Isovue 370 intravenous contrast material with coronal and sagittal reformations. COMPARISON: 03/31/2014. FINDINGS: Lung bases are clear. Visualized heart and pericardium normal. Liver, spleen, pancreas, gallbladder, bilateral adrenal glands and kidneys are normal. Evaluation of the enteric system demonstrates moderate fecal stasis and possible constipation. There is no evidence for acute bowel obstruction or inflammatory process. Normal terminal ileum and appendix are identified in the right lower quadrant. Scattered diverticula noted without acute diverticulitis. Evaluation of the pelvis demonstrates a 4.6 cm fluid collection within the right anterior lower abdomen/pelvis anterior and separate from the bladder with very small adjacent similar collection measuring roughly 1.5 cm maximal diameter adjacent fibrosis. Findings may reflect a seroma given the patients history of prior pelvic surgery. The bladder is unremarkable. Postsurgical changes involving the prosthetic urethra are suspected. No ascites. No obvious intraabdominal or retroperitoneal adenopathy. No solitary mass lesion identified in the abdomen. A fluid collection posterior to the right hip is identified measuring approximately 6.8 x 3.0 x 3.3 cm which may reflect a chronic bursitis/synovitis (images 128-140)and remains similar to 03/31/2014. The remainder of the musculoskeletal structures demonstrate age related changes without focal osseous abnormality. IMPRESSION: 1. 4.6 cm fluid collection in the right anterior hemipelvis with small adjacent collection and minimal adjacent fibrosis suggests seroma from prior surgery and correlation is recommended. This represents a relatively new finding as compared to 2013. 2. A probable chronic synovitis/bursitis involving the posterior right hip with septated fluid collection similar to 2014. 3. Moderate fecal stasis and possible constipation. 4. No further acute abdominopelvic pathology appreciated. Signed by Catracho Faust MD 03/25/2017 11:42 P
== END ==
LOC: M RAD 13:25
PROVIDERS: ATTEND Nurse Practitioner Family
DX: R10.9 Unspecified abdominal pain (principal)
CPT/HCPCS: 74177; Q9963; Q9967

== ENCOUNTER → 2017-04-17 | Outpatient (CLI) | payer OTHER ==
[2017-04-17 10:00] LABS: PROSTATIC SPECIFIC AG MONITOR < 0.01 NG/ML (< 4.0)
== END ==
LOC: M LAB 08:47
DX: C61 Malignant neoplasm of prostate (principal); Z85.49 Personal history of malignant neoplasm of other male genital organs
CPT/HCPCS: 84153

== ENCOUNTER → 2017-04-17 | Outpatient (REF) | payer OTHER ==
[2017-04-20 00:07] LABS: H PYLORI STOOL ANTIGEN Negative (Negative)
== END ==
LOC: M LAB REF 16:33
DX: R93.3 Abnormal findings on diagnostic imaging of other parts of digestive tract (principal)
CPT/HCPCS: 87338

== ENCOUNTER → 2017-04-17 | Outpatient (CLI) | payer OTHER ==
[2017-04-17 09:55] LABS: TOTAL 25(OH) VITAMIN D 49.4 NG/ML (30.0-100.0)
== END ==
LOC: M LAB 08:49
DX: E55.9 Vitamin D deficiency, unspecified (principal)
CPT/HCPCS: 82306

== ENCOUNTER 2017-06-11 10:17 | Outpatient (RCR) | payer OTHER | END 2017-06-13 | LOC: M PT 10:17 | DX: M25.512 Pain in left shoulder (principal) | CPT/HCPCS: 97110 ==

== ENCOUNTER 2017-06-15 08:11 | Outpatient (RCR) | payer OTHER | END 2017-07-14 | disposition home or self-care (01) | LOC: M PT 08:11 | DX: M25.512 Pain in left shoulder (principal) | CPT/HCPCS: 97010 ==

== ENCOUNTER → 2017-07-04 | Outpatient (REF) | payer OTHER | LOC: M SFHCPLAZ 16:41 | DX: E78.5 Hyperlipidemia, unspecified (principal); I10 Essential (primary) hypertension; E55.9 Vitamin D deficiency, unspecified; Z00.00 Encounter for general adult medical examination without abnormal findings; Z53.9 Procedure and treatment not carried out, unspecified reason ==

== ENCOUNTER → 2017-07-06 | Outpatient (CLI) | payer OTHER ==
[2017-07-06 10:54] LABS: BASO % 0.4 % (0.0-1.0); EOS # 0.1 10^3/uL (0.0-0.50); HEMATOCRIT 45.5 % (42.0-52.0); HEMOGLOBIN 15.4 g/dl (14.0-18.0); IMMATURE GRANULOCYTE % 0.2 % (0-3.0); LYMPH # 1.9 10^3/uL (1.5-4.5); LYMPH % 38.7 % (24.0-44.0); MEAN CORPUSCULAR HEMOGLOBIN 30.6 pg (27.0-33.0); MEAN CORPUSCULAR HGB CONC 33.8 g/dl (32.0-36.5); MEAN CORPUSCULAR VOLUME 90.5 fl (80.0-96.0); MONO # 0.3 10^3/uL (0.0-0.8); MONO % 6.6 % (0.0-5.0); NEUTROPHILS # 2.5 10^3/uL (1.8-7.7); NEUTROPHILS % 52.1 % (36.0-66.0); PLATELET COUNT, AUTOMATED 210 10^3/uL (150-450); RED BLOOD COUNT 5.03 10^6/uL (4.30-6.10); RED CELL DISTRIBUTION WIDTH 12.9 % (11.5-14.5); WHITE BLOOD COUNT 4.9 10^3/uL (4.0-10.0)
[2017-07-06 11:24] LABS: TOTAL 25(OH) VITAMIN D 34.7 NG/ML (30.0-100.0)
[2017-07-06 11:30] LABS: MALB URINE SIEMENS 9.1 MG/L; MAU/CREAT RATIO 4.1 MCG/MG (0.0-30.0)
[2017-07-06 11:32] LABS: ALBUMIN 3.8 GM/DL (3.2-5.2); ALBUMIN/GLOBULIN RATIO 1.06 (1.00-1.93); ALKALINE PHOSPHATASE 70 U/L (45-117); ALT/SGPT 27 U/L (12-78); ANION GAP 6 MEQ/L (8-16); AST/SGOT 18 U/L (7-37); BILIRUBIN,TOTAL 0.6 MG/DL (0.2-1.0); BLOOD UREA NITROGEN 13 MG/DL (7-18); CALCIUM LEVEL 9.1 MG/DL (8.5-10.1); CARBON DIOXIDE LEVEL 29 MEQ/L (21-32); CHLORIDE LEVEL 106 MEQ/L (98-107); CREATININE FOR GFR 0.95 MG/DL (0.70-1.30); FREE T4 1.03 NG/DL (0.76-1.46); GLOMERULAR FILTRATION RATE > 60.0 (>56); GLUCOSE, FASTING 88 MG/DL (70-100); POTASSIUM SERUM 4.8 MEQ/L (3.5-5.1); SODIUM LEVEL 141 MEQ/L (136-145); THYROID STIMULATING HORMONE 0.996 uIU/ML (0.358-3.740); TOTAL PROTEIN 7.4 GM/DL (6.4-8.2)
== END ==
LOC: M LAB 10:08
DX: Z00.00 Encounter for general adult medical examination without abnormal findings (principal); E78.5 Hyperlipidemia, unspecified; I10 Essential (primary) hypertension; E55.9 Vitamin D deficiency, unspecified
CPT/HCPCS: 84443

== ENCOUNTER 2017-07-16 08:14 | Outpatient (RCR) | payer OTHER | END 2017-08-13 | LOC: M PT 07-23 08:15 | DX: M25.512 Pain in left shoulder (principal) | CPT/HCPCS: 97010 ==

== ENCOUNTER → 2017-07-27 | Outpatient (CLI) | payer OTHER ==
[2017-07-27 10:19] LABS: PROSTATIC SPECIFIC AG MONITOR < 0.01 NG/ML (< 4.0)
== END ==
LOC: M LAB 09:08
DX: Z85.46 Personal history of malignant neoplasm of prostate (principal)
CPT/HCPCS: 84153

== ENCOUNTER → 2017-10-22 | Outpatient (CLI) | payer OTHER ==
[2017-10-22 10:24] LABS: PROSTATIC SPECIFIC AG MONITOR < 0.01 NG/ML (< 4.0)
== END ==
LOC: M LAB 08:39
DX: Z85.46 Personal history of malignant neoplasm of prostate (principal)
CPT/HCPCS: 84153

== ENCOUNTER 2018-01-11 16:09 | Emergency (ER) | payer OTHER ==
[2018-01-11] MEDS: ONDANSETRON 4MG/2ML VIAL (J2405) IV (17:00)
[2018-01-11 17:07] LABS: BASO % 0.3 % (0.0-1.0); EOS # 0.3 10^3/uL (0.0-0.50); EOS % 3.7 % (0.0-3.0); HEMATOCRIT 43.1 % (42.0-52.0); HEMOGLOBIN 14.7 g/dl (13.5-17.5); IMMATURE GRANULOCYTE % 0.7 % (0-3.0); LYMPH # 2.1 10^3/uL (1.5-4.5); MEAN CORPUSCULAR HEMOGLOBIN 30.6 pg (27.0-33.0); MEAN CORPUSCULAR HGB CONC 34.1 g/dl (32.0-36.5); MEAN CORPUSCULAR VOLUME 89.6 fl (80.0-96.0); MONO # 0.5 10^3/uL (0.0-0.8); MONO % 7.5 % (0.0-5.0); NEUTROPHILS # 3.8 10^3/uL (1.8-7.7); NEUTROPHILS % 56.8 % (36.0-66.0); PLATELET COUNT, AUTOMATED 237 10^3/uL (150-450); RED BLOOD COUNT 4.81 10^6/uL (4.30-6.10); RED CELL DISTRIBUTION WIDTH 13.1 % (11.5-14.5); WHITE BLOOD COUNT 6.7 10^3/uL (4.0-10.0)
[2018-01-11 17:27] LABS: INR 1.03; PROTHROMBIN TIME 13.6 SECONDS (12.1-14.4)
[2018-01-11 17:37] LABS: ALBUMIN/GLOBULIN RATIO 1.18 (1.00-1.93); ALKALINE PHOSPHATASE 74 U/L (45-117); ALT/SGPT 24 U/L (12-78); ANION GAP 8 MEQ/L (8-16); AST/SGOT 18 U/L (7-37); BILIRUBIN,DIRECT < 0.1 MG/DL (0.0-0.2); BILIRUBIN,TOTAL 0.3 MG/DL (0.2-1.0); BLOOD UREA NITROGEN 10 MG/DL (7-18); CALCIUM LEVEL 9.4 MG/DL (8.5-10.1); CARBON DIOXIDE LEVEL 27 MEQ/L (21-32); CHLORIDE LEVEL 107 MEQ/L (98-107); CK-MB VALUE MASS < 1.0 NG/ML (<3.6); CPK CREATINE PHOSPHOKINASE 136 U/L (39-308); CREATININE FOR GFR 0.76 MG/DL (0.70-1.30); GLOMERULAR FILTRATION RATE > 60.0 (>56); GLUCOSE, FASTING 77 MG/DL (70-100); LIPASE 165 U/L (73-393); MB/CK RELATIVE INDEX 0.74 (< OR =4); NT-PRO BNP 48 PG/ML (<125); POTASSIUM SERUM 4.3 MEQ/L (3.5-5.1); SODIUM LEVEL 142 MEQ/L (136-145); TOTAL PROTEIN 7.4 GM/DL (6.4-8.2); TROPONIN I < 0.02 NG/ML (< 0.10)
[2018-01-11] MEDS: NITROGLYCERIN 0.4 MG SUBL TABLET SL ×2 (17:52→20:05)
[2018-01-11] MEDS ORDERED: ISOVUE-370 76% 100ML VIAL (Q9967) As Ordered (18:17)
[2018-01-11] MEDS: MORPHINE 4 MG/ML 1ML VIAL/SYRINGE (J2270) IV ×2 (18:31→23:52)
[2018-01-11 23:36] LABS: CK-MB VALUE MASS < 1.0 NG/ML (<3.6); CPK CREATINE PHOSPHOKINASE 112 U/L (39-308); MB/CK RELATIVE INDEX 0.89 (< OR =4); TROPONIN I < 0.02 NG/ML (< 0.10)
== END 2018-01-12 00:20 | disposition home or self-care (01) ==
LOC: M ED 01-12 00:20
DX: R07.9 Chest pain, unspecified (principal); I25.10 Atherosclerotic heart disease of native coronary artery without angina pectoris; I10 Essential (primary) hypertension; Z79.01 Long term (current) use of anticoagulants; Z95.5 Presence of coronary angioplasty implant and graft; Z79.82 Long term (current) use of aspirin; Z79.899 Other long term (current) drug therapy
CPT/HCPCS: J2270

== ENCOUNTER → 2018-01-25 | Outpatient (CLI) | payer OTHER ==
[2018-01-25 10:39] LABS: ALBUMIN 3.8 GM/DL (3.2-5.2); ALBUMIN/GLOBULIN RATIO 1.06 (1.00-1.93); ALKALINE PHOSPHATASE 77 U/L (45-117); ALT/SGPT 24 U/L (12-78); ANION GAP 8 MEQ/L (8-16); AST/SGOT 14 U/L (7-37); BILIRUBIN,TOTAL 0.5 MG/DL (0.2-1.0); BLOOD UREA NITROGEN 13 MG/DL (7-18); CALCIUM LEVEL 8.9 MG/DL (8.5-10.1); CARBON DIOXIDE LEVEL 27 MEQ/L (21-32); CHLORIDE LEVEL 108 MEQ/L (98-107); CHOLESTEROL LEVEL 234 MG/DL (<200); CREATININE FOR GFR 0.87 MG/DL (0.70-1.30); GLOMERULAR FILTRATION RATE > 60.0 (>56); GLUCOSE, FASTING 89 MG/DL (70-100); HDL CHOLESTEROL 40 MG/DL (>40); LDL CHOLESTEROL 169 MG/DL (<100); NON-HDL-C 194 MG/DL; POTASSIUM SERUM 4.6 MEQ/L (3.5-5.1); SODIUM LEVEL 143 MEQ/L (136-145); TOTAL PROTEIN 7.4 GM/DL (6.4-8.2); TRIGLYCERIDES LEVEL 124 MG/DL (<150)
[2018-01-25 19:33] LABS: TOTAL 25(OH) VITAMIN D 25.9 NG/ML (30.0-100.0)
== END ==
LOC: M LAB 08:51
DX: E78.5 Hyperlipidemia, unspecified (principal)
CPT/HCPCS: 80053

== ENCOUNTER → 2018-01-25 | Outpatient (CLI) | payer OTHER ==
[2018-01-25 10:41] LABS: PROSTATIC SPECIFIC AG MONITOR < 0.01 NG/ML (< 4.0)
== END ==
LOC: M LAB 08:56
DX: Z85.46 Personal history of malignant neoplasm of prostate (principal)
CPT/HCPCS: 84153

== ENCOUNTER → 2018-02-20 | Outpatient (REF) | payer OTHER | LOC: M SFHCPLAZ 11:13 | DX: E78.5 Hyperlipidemia, unspecified (principal); E55.9 Vitamin D deficiency, unspecified; R10.31 Right lower quadrant pain ==

== ENCOUNTER 2018-03-22 08:19 | Day surgery (SDC) | payer OTHER ==
[~2018-03-22] VITALS: Ht 177.8 cm; Wt 80.3 kg
[~2018-03-22 08:19] MED LIST changes: -DRIS50002 PO; +DRIS50003 PO; -GASTROGRAFIN SOLUTION 30ML (Q9963) As Ordered ONE; -ISOVUE-370 76% 100ML VIAL (Q9967) As Ordered ONE; +METO1TAB7 PO; +NITR0.4S14 SL; +NS 1,000 ML IV ONE; +RAMI1CAP21 PO; +VITA100067 PO; -VITA1CAP40 PO; +VITA50005 PO
[2018-03-22] MEDS ORDERED: PROPOFOL 200 MG/20 ML VIAL As Ordered ONE (08:43)
[2018-03-22] MEDS ORDERED: LIDOCAINE 2% INJ 100 MG/5 ML SDV (FOR ANES.) As Ordered ONE (08:45)
[2018-03-22] MEDS ORDERED: METO50TA7 PO (09:10)
[2018-03-22] MEDS ORDERED: METO1TAB7 PO (09:10)
--- NOTE | 2018-03-22 10:30 | ROOR ---
Patient Name: Jenifer Jarrell Procedure Date: 03/22/2018 9:40 AM Date of : 1960 Age: 58 Room: [facility] Gender: Male Note Status: Finalized Procedure: Colonoscopy Indications: Screening for colorectal malignant neoplasm Providers: Edison Lyons MD Referring MD: Sheila Austin NP, Shon Eldridge Md Requesting Provider: Medicines: Monitored Anesthesia Care Complications: No immediate complications. Procedure: Pre-Anesthesia Assessment: - Prior to the procedure, a History and Physical was performed, and patient medications and allergies were reviewed. The patient is competent. The risks and benefits of the procedure and the sedation options and risks were discussed with the patient. All questions were answered and informed consent was obtained. Patient identification and proposed procedure were verified by the physician, the nurse and the anesthesiologist in the procedure room. Mental Status Examination: alert and oriented. Airway Examination: normal oropharyngeal airway and neck mobility. Respiratory Examination: clear to auscultation. CV Examination: normal. Prophylactic Antibiotics: The patient does not require prophylactic antibiotics. Prior Anticoagulants: The patient has taken no previous anticoagulant or antiplatelet agents. ASA Grade Assessment: II - A patient with mild systemic disease. After reviewing the risks and benefits, the patient was deemed in satisfactory condition to undergo the procedure. The anesthesia plan was to use monitored anesthesia care (MAC). Immediately prior to administration of medications, the patient was re-assessed for adequacy to receive sedatives. The heart rate, respiratory rate, oxygen saturations, blood pressure, adequacy of pulmonary ventilation, and response to care were monitored throughout the procedure. The physical status of the patient was re-assessed after the procedure. The Colonoscope was introduced through the anus and advanced to the terminal ileum, with identification of the appendiceal orifice and IC valve. The colonoscopy was performed without difficulty. The patient tolerated the procedure well. The quality of the bowel preparation was adequate to identify polyps 6 mm and larger in size. The ileocecal valve, appendiceal orifice, and rectum were photographed. Scope insertion time was 4 minutes. Scope withdrawal time was 10 minutes. The total duration of the procedure was 15 minutes. Findings: The perianal and digital rectal examinations were normal. The terminal ileum appeared normal. A 5 mm polyp was found in the cecum. The polyp was sessile. The polyp was removed with a jumbo cold forceps. Resection and retrieval were complete. For hemostasis, one hemostatic clip was successfully placed. There was no bleeding at the end of the procedure. A 12 mm polyp was found in the recto-sigmoid colon. The polyp was sessile. The polyp was removed with a cold snare. Resection and retrieval were complete. To close a defect after polypectomy, one hemostatic clip was successfully placed. There was no bleeding at the end of the procedure. A 3 mm polyp was found in the rectum. The polyp was sessile. The polyp was removed with a jumbo cold forceps. Resection and retrieval were complete. External and internal hemorrhoids were found during retroflexion. The hemorrhoids were medium-sized. Impression: - The examined portion of the ileum was normal. - One 5 mm polyp in the cecum, removed with a jumbo cold forceps. Resected and retrieved. Clip was placed. - One 12 mm polyp at the recto-sigmoid colon, removed with a cold snare. Resected and retrieved. Clip was placed. - One 3 mm polyp in the rectum, removed with a jumbo cold forceps. Resected and retrieved. - External and internal hemorrhoids. Recommendation: - Patient has a contact number available for emergencies. The signs and symptoms of potential delayed complications were discussed with the patient. Return to normal activities tomorrow. Written discharge instructions were provided to the patient. - High fiber diet. - Continue present medications. - Await pathology results. - Repeat colonoscopy in 3 years for surveillance based on pathology results. - Based on the biopsy results you will receive a phone call from GI clinic in 2-3 weeks to review the pathology results AND/OR your results will be faxed to your Primary care physician. - Return to primary care physician. Edison Lyons MD Edison Lyons MD 03/22/2018 10:30:02 AM This report has been signed electronically. Number of Addenda: 0 Note Initiated On: 03/22/2018 9:40 AM Estimated Blood Loss: Estimated blood loss was minimal.
[2018-03-22 10:50] VITALS: BP 143/91
== END 2018-03-22 11:10 | disposition home or self-care (01) ==
LOC: M OPP 08:19
PROVIDERS: ATTEND Internal Medicine Gastroenterology
DX: Z12.11 Encounter for screening for malignant neoplasm of colon (principal); K63.5 Polyp of colon; K64.8 Other hemorrhoids; I10 Essential (primary) hypertension; E78.5 Hyperlipidemia, unspecified; Z85.46 Personal history of malignant neoplasm of prostate; Z79.82 Long term (current) use of aspirin; Z79.899 Other long term (current) drug therapy

== ENCOUNTER → 2018-05-10 | Outpatient (CLI) | payer OTHER ==
[~2018-05-10] MED LIST changes: +METO50TA7 PO; -NS 1,000 ML IV ONE
== END ==
LOC: M LAB 09:03
PROVIDERS: ATTEND Nurse Practitioner Women's Health
DX: Z08 Encounter for follow-up examination after completed treatment for malignant neoplasm (principal); Z85.46 Personal history of malignant neoplasm of prostate

== ENCOUNTER → 2018-05-10 | Outpatient (CLI) | payer OTHER ==
[2018-05-10 10:15] LABS: ALBUMIN 3.8 GM/DL (3.2-5.2); ALT/SGPT 25 U/L (12-78); BILIRUBIN,TOTAL 0.6 MG/DL (0.2-1.0); BLOOD UREA NITROGEN 11 MG/DL (7-18); CALCIUM LEVEL 8.6 MG/DL (8.5-10.1); CARBON DIOXIDE LEVEL 25 MEQ/L (21-32); CHLORIDE LEVEL 107 MEQ/L (98-107); CHOLESTEROL LEVEL 122 MG/DL (<200); CHOLESTEROL RISK RATIO 3.128 (<5); CREATININE FOR GFR 0.91 MG/DL (0.70-1.30); GLOMERULAR FILTRATION RATE > 60.0 (>56); GLUCOSE, FASTING 96 MG/DL (70-100); HDL CHOLESTEROL 39 MG/DL (>40); LDL CHOLESTEROL 71 MG/DL (<100); NON-HDL-C 83 MG/DL; POTASSIUM SERUM 4.6 MEQ/L (3.5-5.1); SODIUM LEVEL 140 MEQ/L (136-145); TOTAL PROTEIN 7.2 GM/DL (6.4-8.2); TRIGLYCERIDES LEVEL 59 MG/DL (<150)
== END ==
LOC: M LAB 09:07
PROVIDERS: ATTEND Internal Medicine Cardiovascular Disease
DX: I25.10 Atherosclerotic heart disease of native coronary artery without angina pectoris (principal); I10 Essential (primary) hypertension

== ENCOUNTER → 2018-08-13 | Outpatient (CLI) | payer OTHER ==
[~2018-08-13] MED LIST changes: -ASPI1TAB PO; +ASPI81TA26 PO; +GASTROGRAFIN SOLUTION 30ML (Q9963) As Ordered ONE; +ISOVUE-370 76% 100ML VIAL (Q9967) As Ordered ONE
--- NOTE | 2018-08-14 05:57 | REP ---
Clinical: Lower abdominal pain. History of prostate cancer. Technique: Axial contrast enhanced images from the lung bases to the pubic symphysis using oral (per protocol) and 100 ml Isovue 370 intravenous contrast material with delayed images of the abdomen as well as coronal and sagittal re-formations. Comparison: 03/21/2017. Findings: Lung bases are clear. Visualized heart and pericardium within normal limits. Liver, spleen, pancreas, gallbladder, bilateral adrenal glands and kidneys are normal. The enteric system is without obstruction or acute inflammatory process normal terminal ileum and appendix identified in the right lower quadrant. Few scattered colonic and sigmoid diverticula noted without acute diverticulitis. The previously identified fluid collection in the anterior right edouard pelvis anterior to the bladder has considerably decreased in size and now measures approximately 2.2 cm maximal diameter (images 122-130). Pelvis demonstrates normal bladder and evidence for prior prostatectomy. No ascites. No free air. No intraperitoneal or retroperitoneal adenopathy. Abdominal aorta without aneurysm or dissection. Surrounding musculoskeletal structures demonstrate age-related changes without focal osseous abnormality. Stable fluid collection posterior to the right hip is unchanged (images 135-145). Impression: 1. Previously identified suspected seroma in the right anterior edouard pelvis has considerably decreased in size and now measures approximately 2.2 cm maximal diameter. 2. Well-defined fluid collection posterior to the right hip remains stable and may represent chronic bursitis. 3. No further acute abdominopelvic pathology appreciated. Electronically Signed by Catracho Faust MD 08/14/2018 05:48 A
== END ==
LOC: M RAD 14:59
PROVIDERS: ATTEND Internal Medicine Gastroenterology
DX: R10.30 Lower abdominal pain, unspecified (principal); Z85.46 Personal history of malignant neoplasm of prostate
CPT/HCPCS: 74177; Q9963; Q9967

== ENCOUNTER → 2018-11-18 | Outpatient (CLI) | payer OTHER ==
[~2018-11-18] MED LIST changes: -GASTROGRAFIN SOLUTION 30ML (Q9963) As Ordered ONE; -ISOVUE-370 76% 100ML VIAL (Q9967) As Ordered ONE
== END ==
LOC: M LAB 08:53
PROVIDERS: ATTEND Urology
DX: C61 Malignant neoplasm of prostate (principal)

== ENCOUNTER → 2018-11-18 | Outpatient (CLI) | payer OTHER ==
[2018-11-18 10:24] LABS: BLOOD UREA NITROGEN 12 MG/DL (7-18); CREATININE FOR GFR 0.98 MG/DL (0.70-1.30); GLOMERULAR FILTRATION RATE > 60.0 (>56)
== END ==
LOC: M LAB 08:57
PROVIDERS: ATTEND Internal Medicine Gastroenterology
DX: R10.30 Lower abdominal pain, unspecified (principal)

== ENCOUNTER → 2019-01-15 | Outpatient (REF) | payer OTHER ==
[2019-01-15 13:13] LABS: ALBUMIN 3.8 GM/DL (3.2-5.2); ALT/SGPT 24 U/L (12-78); BILIRUBIN,TOTAL 0.7 MG/DL (0.2-1.0); BLOOD UREA NITROGEN 16 MG/DL (7-18); CALCIUM LEVEL 9.3 MG/DL (8.5-10.1); CARBON DIOXIDE LEVEL 28 MEQ/L (21-32); CHLORIDE LEVEL 104 MEQ/L (98-107); CREATININE FOR GFR 0.86 MG/DL (0.70-1.30); GLOMERULAR FILTRATION RATE > 60.0 (>56); GLUCOSE, FASTING 88 MG/DL (70-100); POTASSIUM SERUM 4.1 MEQ/L (3.5-5.1); SODIUM LEVEL 140 MEQ/L (136-145); TOTAL 25(OH) VITAMIN D 23.9 NG/ML (30.0-100.0); TOTAL PROTEIN 7.8 GM/DL (6.4-8.2)
== END ==
LOC: M SFHCPLAZ 08:50
PROVIDERS: ATTEND Nurse Practitioner Family
DX: I10 Essential (primary) hypertension (principal); E78.5 Hyperlipidemia, unspecified; E55.9 Vitamin D deficiency, unspecified

== ENCOUNTER → 2020-01-05 | Outpatient (CLI) | payer OTHER ==
--- NOTE | 2020-01-13 14:52 | REP ---
LIMITED PELVIC ULTRASOUND CLINICAL: Bilateral groin pain. TECHNIQUE: Real-time montoya scale ultrasound examination using linear high frequency transducer. FINDINGS: Directed ultrasound examination along the bilateral groin an overlying prior incision site demonstrates normal subcutaneous tissues without evidence for abnormal fluid collection, mass, or hernia. IMPRESSION: No evidence for abnormality or hernia. MTDD
--- NOTE | 2020-01-13 14:54 | REP ---
LIMITED ABDOMINAL ULTRASOUND CLINICAL: Abdominal pain, evaluate for hernia. TECHNIQUE: Real-time montoya scale ultrasound examination using linear high frequency transducer. FINDINGS: Ultrasound examination at the midline from the level of the xiphoid to the umbilicus, at the site of maximal tenderness, demonstrates normal subcutaneous tissue without evidence for hernia, fluid collection, or mass lesion. IMPRESSION: Normal examination. No evidence for hernia. MTDD
== END ==
LOC: M RAD 06:31
PROVIDERS: ATTEND Family Medicine
DX: R10.2 Pelvic and perineal pain (principal)

== ENCOUNTER → 2020-01-05 | Outpatient (CLI) | payer OTHER | LOC: M LAB 07:13 | PROVIDERS: ATTEND Urology | DX: C61 Malignant neoplasm of prostate (principal) ==

== ENCOUNTER → 2020-02-20 | Outpatient (CLI) | payer OTHER ==
[~2020-02-20] MED LIST changes: +GASTROGRAFIN SOLUTION 30ML (Q9963) As Ordered ONE; +ISOVUE-370 76% 100ML VIAL As Ordered ONE
--- NOTE | 2020-02-20 16:42 | REP ---
INDICATION: LOWER ABDOMINAL PAIN. COMPARISON: CT 08/13/2018 TECHNIQUE: Oral Gastrografin mixture per our bowel contrast protocol and bolus 100 mL Isovue 370 scanning through the abdomen and pelvis with coronal and sagittal reconstructions. Delayed images were also obtained through the abdomen FINDINGS: CT abdomen: Lung bases are clear. Heart is not enlarged there is no pericardial thickening or effusion. No definite hiatal hernia. There is no hepatosplenomegaly, focal hepatic mass or intrahepatic biliary dilatation. Gallbladder shows no calcified stone mass or wall thickening pancreas was grossly unremarkable. Abdominal portion of the colon shows moderate stool without signs of colitis or diverticulitis. Proximal small bowel loops with fluid distal and mid small bowel loops with oral contrast but no dilatation. Contrast reaches the cecum. The adrenal glands were normal. Kidneys show symmetric enhancement without mass, stone or hydronephrosis there is a tiny cortical cyst subcentimeter upper pole on the right unchanged. There is no hydroureter or ureteral stone evident. No aortic aneurysm or dissection. There are some calcifications in the abdominal aorta and branches. Lung window review of all CT slices shows no perforation or free air in the abdomen. Bone windows show degenerative disc changes at L5-S1 with a few mm of retrolisthesis. Lesser degenerative changes at other lumbar and lower thoracic levels without compression deformity or destructive lesions. Some facet arthropathy. Lower ribs without focal lesion. CT pelvis: The sacrum and SI joints are grossly intact. Iliac bones, acetabulae, hips and pubic bones are unchanged. There is some sclerosis in the posterior column of the right acetabulum and more superiorly in the left acetabular posterior column representing focal sclerotic bone lesions, likely bone islands and unchanged. There are also a couple of sclerotic foci in the right femoral head and lucency in the left femoral head neck junction representing a synovial herniation pit as a benign finding. All of these sclerotic bone findings are unchanged. And not see ventral or inguinal hernia. Bladder is only partially filled in suspect some wall thickening anteriorly even in light of that. No distal ureteral dilatation or stone no bladder calculus. No pathologic sized adenopathy in the deep pelvis the distal left colon, sigmoid and rectum show gas-filled proximal of to mid sigmoid distal sigmoid shows stricture is a change from the previous study. Stricture as some thickening of the colonic wall. Could not exclude developing colon lesion. Previously noted small a fluid collection in the superior anterior to the bladder and adjacent to the sigmoid on the previous CT has further decreased in size now at 17 mm versus 22. Deep to the gluteus sukhdeep on the right is a other stable of fluid collection adjacent to the posterior column and hip. It abuts that acetabulum. IMPRESSION: 1. Appearance of a stricture of the sigmoid colon distally just above its junction with the rectum is a change from the previous study there is thickening of the wall and this sigmoid above this is mildly dilated as a new change. Could not exclude a neoplasm or inflammatory stricture. Appropriate referral and colonoscopy recommended. 2. Small of mesenteric fluid collection anterior to the more proximal sigmoid to the right of midline this now but 17 mm previously 22 mm. 3. Stable benign-appearing fluid collection with smooth margins adjacent to the acetabulum in deep to the right gluteus sukhdeep. 4. Bladder wall thickening with no renal, ureteral or bladder stone. No hydronephrosis or hydroureter. This appearance is stable no other significant finding. 5. Some scattered stable sclerotic foci in the bones as described involving right hip and acetabulum. These may be relevant in a patient with prostate carcinoma but they are stable. <Electronically signed by Bobby Diallo > 02/20/20 [id number]
== END ==
LOC: M RAD 13:16
PROVIDERS: ATTEND Family Medicine
DX: R93.5 Abnormal findings on diagnostic imaging of other abdominal regions, including retroperitoneum (principal); R10.30 Lower abdominal pain, unspecified
CPT/HCPCS: 74177; Q9963; Q9967

== ENCOUNTER → 2020-03-15 | Outpatient (CLI) | payer OTHER ==
[~2020-03-15] MED LIST changes: -GASTROGRAFIN SOLUTION 30ML (Q9963) As Ordered ONE; -ISOVUE-370 76% 100ML VIAL As Ordered ONE
== END ==
LOC: M LABSMTC 11:21
PROVIDERS: ATTEND Anesthesiology
DX: Z01.812 Encounter for preprocedural laboratory examination (principal); Z20.828 Contact with and (suspected) exposure to other viral communicable diseases

== ENCOUNTER 2020-03-18 09:05 | Day surgery (SDC) | payer OTHER ==
[~2020-03-18] VITALS: Ht 177.8 cm; Wt 83.9 kg
[~2020-03-18 09:05] MED LIST changes: +LIDOCAINE 2% 100MG/5ML SDV (FOR ANES.) As Ordered ONE; +NS 1,000 ML IV ONE; +propofoL 500 MG/50 ML VIAL As Ordered ONE
[2020-03-18] MEDS ORDERED: ASPI81CH33 PO (09:51)
[2020-03-18] MEDS ORDERED: PHENYLephrine HCL 500 MCG/5 ML (100MCG/ML) SYRINGE (J2370) As Ordered ONE (11:44)
--- NOTE | 2020-03-18 11:59 | ROOR ---
Patient Name: Jenifer Jarrell Procedure Date: 03/18/2020 11:03 AM Date of : 1960 Age: 60 Room: [facility] Gender: Male Note Status: Finalized Procedure: Colonoscopy Indications: Abnormal CT of the GI tract Providers: Edison Lyons MD Referring MD: Karla Clay MD Requesting Provider: Medicines: Monitored Anesthesia Care Complications: No immediate complications. Procedure: Pre-Anesthesia Assessment: - Prior to the procedure, a History and Physical was performed, and patient medications and allergies were reviewed. The patient is competent. The risks and benefits of the procedure and the sedation options and risks were discussed with the patient. All questions were answered and informed consent was obtained. Patient identification and proposed procedure were verified by the physician, the nurse and the anesthesiologist in the procedure room. Mental Status Examination: alert and oriented. Airway Examination: normal oropharyngeal airway and neck mobility. Respiratory Examination: clear to auscultation. CV Examination: normal. Prophylactic Antibiotics: The patient does not require prophylactic antibiotics. Prior Anticoagulants: The patient has taken no previous anticoagulant or antiplatelet agents. ASA Grade Assessment: II - A patient with mild systemic disease. After reviewing the risks and benefits, the patient was deemed in satisfactory condition to undergo the procedure. The anesthesia plan was to use monitored anesthesia care (MAC). Immediately prior to administration of medications, the patient was re-assessed for adequacy to receive sedatives. The heart rate, respiratory rate, oxygen saturations, blood pressure, adequacy of pulmonary ventilation, and response to care were monitored throughout the procedure. The physical status of the patient was re-assessed after the procedure. The Colonoscope was introduced through the anus and advanced to the terminal ileum, with identification of the appendiceal orifice and IC valve. The colonoscopy was performed without difficulty. The patient tolerated the procedure well. Findings: The perianal and digital rectal examinations were normal. The terminal ileum appeared normal. Four sessile polyps were found in the recto-sigmoid colon, descending colon, ascending colon and cecum. The polyps were 4 to 8 mm in size. These polyps were removed with a hot snare. Resection and retrieval were complete. Verification of patient identification for the specimen was done by the physician and nurse using the patient's name, date and medical record number. Estimated blood loss was minimal. A scattered area of mild melanosis was found in the entire colon. Non-bleeding external and internal hemorrhoids were found during retroflexion. The hemorrhoids were medium-sized. Impression: - The examined portion of the ileum was normal. - Four 4 to 8 mm polyps at the recto-sigmoid colon, in the descending colon, in the ascending colon and in the cecum, removed with a hot snare. Resected and retrieved. - Melanosis in the colon. - Non-bleeding external and internal hemorrhoids. Recommendation: - Patient has a contact number available for emergencies. The signs and symptoms of potential delayed complications were discussed with the patient. Return to normal activities tomorrow. Written discharge instructions were provided to the patient. - High fiber diet. - Continue present medications. - Await pathology results. - Repeat colonoscopy in 3 years for surveillance based on pathology results. - Telephone GI clinic for pathology results in 1 week. - Return to primary care physician. Procedure Code(s): --- Professional --- 17399, Colonoscopy, flexible; with removal of tumor(s), polyp(s), or other lesion(s) by snare technique Diagnosis Code(s): --- Professional --- K64.8, Other hemorrhoids K63.5, Polyp of colon K63.89, Other specified diseases of intestine R93.3, Abnormal findings on diagnostic imaging of other parts of digestive tract CPT copyright 2019 [employer]. All rights reserved. The codes documented in this report are preliminary and upon seed collector review may be revised to meet current compliance requirements. Edison Lyons MD Edison Lyons MD 03/18/2020 11:58:33 AM Electronically signed by Edison Lyons MD Number of Addenda: 0 Note Initiated On: 03/18/2020 11:03 AM Estimated Blood Loss: Estimated blood loss was minimal.
[2020-03-18 12:19] VITALS: BP 119/84
== END 2020-03-18 12:25 | disposition home or self-care (01) ==
LOC: M OPP 09:05
PROVIDERS: ATTEND Internal Medicine Gastroenterology
DX: D12.6 Benign neoplasm of colon, unspecified (principal); K63.89 Other specified diseases of intestine; K64.8 Other hemorrhoids; R93.3 Abnormal findings on diagnostic imaging of other parts of digestive tract; Z79.82 Long term (current) use of aspirin; Z79.899 Other long term (current) drug therapy; Z85.49 Personal history of malignant neoplasm of other male genital organs; Z85.46 Personal history of malignant neoplasm of prostate; Z95.5 Presence of coronary angioplasty implant and graft
CPT/HCPCS: 45385; 88305; J2370

== ENCOUNTER → 2020-08-22 | Outpatient (CLI) | payer OTHER ==
[~2020-08-22] MED LIST changes: +ASPI81CH33 PO; -LIDOCAINE 2% 100MG/5ML SDV (FOR ANES.) As Ordered ONE; -NS 1,000 ML IV ONE; -propofoL 500 MG/50 ML VIAL As Ordered ONE
[2020-08-22 09:30] LABS: ALBUMIN 3.6 GM/DL (3.2-5.2); ALT/SGPT 25 U/L (12-78); BILIRUBIN,TOTAL 0.5 MG/DL (0.2-1.0); BLOOD UREA NITROGEN 13 MG/DL (7-18); CALCIUM LEVEL 8.8 MG/DL (8.8-10.2); CARBON DIOXIDE LEVEL 29 MEQ/L (21-32); CHLORIDE LEVEL 108 MEQ/L (98-107); CHOLESTEROL LEVEL 132 MG/DL (<200); CREATININE FOR GFR 0.78 MG/DL (0.70-1.30); GLOMERULAR FILTRATION RATE > 60.0 (>49); GLUCOSE, FASTING 92 MG/DL (70-100); HDL CHOLESTEROL 40 MG/DL (>40); LDL CHOLESTEROL 79 MG/DL (<100); NON-HDL-C 92 MG/DL; POTASSIUM SERUM 4.9 MEQ/L (3.5-5.1); PROSTATIC SPECIFIC AG MONITOR < 0.01 NG/ML (< 4.00); SODIUM LEVEL 140 MEQ/L (136-145); TRIGLYCERIDES LEVEL 64 MG/DL (<150)
[2020-08-23 11:11] LABS: TOTAL 25(OH) VITAMIN D 21.6 NG/ML (30.0-100.0)
== END ==
LOC: M LAB 08:17
PROVIDERS: ATTEND Family Medicine
DX: E55.9 Vitamin D deficiency, unspecified (principal); E78.2 Mixed hyperlipidemia; I10 Essential (primary) hypertension

== ENCOUNTER → 2020-08-22 | Outpatient (CLI) | payer OTHER ==
--- NOTE | 2020-08-22 08:38 | REP ---
INDICATION: WHEEZING,VENTRICULAR PREMATURE DEPOLARIZATION/ LABS 1ST. COMPARISON: 01/11/2018 a portable exam TECHNIQUE: Two views FINDINGS: The superior mediastinal structures are midline. The cardiac silhouette is unremarkable in size, shape, and position. The diaphragmatic surfaces of the lungs are regular, and the costophrenic angles are clear. The pulmonary yusuf are clear. The imaged osseous structures are intact. IMPRESSION: There is no acute cardiopulmonary disease. <Electronically signed by Edson Leung > 08/22/20 [id number]
[2020-08-22 09:06] LABS: HEMATOCRIT 44.8 % (42.0-52.0); HEMOGLOBIN 14.4 g/dl (13.5-17.5); MEAN CORPUSCULAR HEMOGLOBIN 29.6 pg (27.0-33.0); MEAN CORPUSCULAR HGB CONC 32.1 g/dl (32.0-36.5); PLATELET COUNT, AUTOMATED 220 10^3/uL (150-450); RED BLOOD COUNT 4.87 10^6/uL (4.30-6.10); WHITE BLOOD COUNT 4.2 10^3/uL (4.0-10.0)
[2020-08-22 09:29] LABS: ALT/SGPT 25 U/L (12-78); BLOOD UREA NITROGEN 12 MG/DL (7-18); CALCIUM LEVEL 8.8 MG/DL (8.8-10.2); CARBON DIOXIDE LEVEL 28 MEQ/L (21-32); CHLORIDE LEVEL 109 MEQ/L (98-107); CREATININE FOR GFR 0.78 MG/DL (0.70-1.30); GLOMERULAR FILTRATION RATE > 60.0 (>49); GLUCOSE, FASTING 92 MG/DL (70-100); POTASSIUM SERUM 4.8 MEQ/L (3.5-5.1); SODIUM LEVEL 140 MEQ/L (136-145)
[2020-08-22 09:30] LABS: ALBUMIN 3.6 GM/DL (3.2-5.2); BILIRUBIN,TOTAL 0.5 MG/DL (0.2-1.0); TOTAL PROTEIN 7.2 GM/DL (6.4-8.2); TROPONIN I < 0.02 NG/ML (< 0.10)
[2020-08-22 09:56] LABS: NT-PRO BNP 76 PG/ML (<125)
== END ==
LOC: M LAB 08:07
PROVIDERS: ATTEND Internal Medicine Cardiovascular Disease
DX: I49.3 Ventricular premature depolarization (principal); I10 Essential (primary) hypertension; R06.02 Shortness of breath; R07.9 Chest pain, unspecified